=== PATIENT | female | born 1955 | race Caucasian/White ===

== ENCOUNTER → 2017-08-23 | Outpatient (CLI) | payer OTHER ==
--- NOTE | 2017-08-23 10:54 | XR ---
EXAMINATION TYPE: XR chest 2V DATE OF EXAM: 08/23/2017 COMPARISON: NONE HISTORY: Mid chest chest pain with pain under the left breast. TECHNIQUE: Frontal and lateral views of the chest are obtained. FINDINGS: There is no focal air space opacity, pleural effusion, or pneumothorax seen. The cardiac silhouette size is within normal limits. The osseous structures are intact. IMPRESSION: 1. No acute cardiopulmonary process. 2. If there is left breast pain diagnostic workup of the left breast would be recommended with mammog dyan and/or ultrasound.
--- NOTE | 2017-08-28 10:26 | MM ---
Reason for exam: clinical finding. Last mammogram was performed 3 years and 9 months ago. History: Patient is postmenopausal. Family history of premenopausal breast cancer in 2 maternal cousins. Physical Findings: Nurse did not find any significant physical abnormalities on exam. MG Diagnostic Mammo w CAD DERRICK Bilateral CC and MLO view(s) were taken. Prior study comparison: May 24, 2015, mammogram, performed at [facility]. November 16, 2013, bilateral digital screening mammo w/CAD. The breast tissue is heterogeneously dense. This may lower the sensitivity of mammography. There is no discrete abnormality. These results were verbally communicated with the patient on 08/28/17. ASSESSMENT: Negative, BI-RAD 1 RECOMMENDATION: Routine screening mammogram of both breasts in 1 year. Manage on a clinical basis with regard to left pain.
== END | disposition home or self-care (01) ==
LOC: RADMAMWWP 08:58
PROVIDERS: ATTEND Internal Medicine Geriatric Medicine
DX: N64.4 Mastodynia (principal); R07.9 Chest pain, unspecified
CPT/HCPCS: 71020; G0204

== ENCOUNTER → 2017-08-28 | Outpatient (CLI) | payer OTHER ==
--- NOTE | 2017-08-28 11:29 | P.STRESS ---
- Stress Test Note Stress Test Results/Findings: Exam Performed: stress echo exercise Exam Date: 08/28/17 Reason for Exam: CHEST PAIN Height: 5 ft 3 in Weight: 63.503 kg Protocol: JESSICA Stage: 3 Duration of Exercise: 7:15 Resting Heart Rate: 78 Resting Blood Pressure: 103/61 Maximum Achieved Heart Rate: 144 Maximum Achieved Blood Pressure: 159/69 85% PMHR: 133 100% PMHR: 157 METS: 8.5 Technologist Comment: Stress Test Results/Findings: Baseline EKG showed sinus rhythm with normal MO interval and QRS duration. EKGs taken during and after exercise did not reveal any changes to sized ischemia. Occasional PVCs were noted. Echo data: Baseline echo images show normal wall motion and thickening. Exercise echo images showed augmentation of wall motion and thickening in all the segments. Apical 2 chamber, sore suboptimal but overall there appears to be augmentation of wall motion and thickening. Final impression: #1. Negative stress test. #. Negative stress echo
--- NOTE | 2017-08-28 15:54 | ECHOS ---
Stress Test Results/Findings: Exam Performed: stress echo exercise Exam Date: 08/28/17 Reason for Exam: CHEST PAIN Height: 5 ft 3 in Weight: 63.503 kg Protocol: JESSICA Stage: 3 Duration of Exercise: 7:15 Resting Heart Rate: 78 Resting Blood Pressure: 103/61 Maximum Achieved Heart Rate: 144 Maximum Achieved Blood Pressure: 159/69 85% PMHR: 133 100% PMHR: 157 METS: 8.5 Technologist Comment: Stress Test Results/Findings: Baseline EKG showed sinus rhythm with normal GA interval and QRS duration. EKGs taken during and after exercise did not reveal any changes to sized ischemia. Occasional PVCs were noted. Echo data: Baseline echo images show normal wall motion and thickening. Exercise echo images showed augmentation of wall motion and thickening in all the segments. Apical 2 chamber, sore suboptimal but overall there appears to be augmentation of wall motion and thickening. Final impression: #1. Negative stress test. #. Negative stress echo MTDD
== END | disposition home or self-care (01) ==
LOC: RADNMMAIN 10:32
PROVIDERS: ATTEND Internal Medicine Geriatric Medicine
DX: R07.9 Chest pain, unspecified (principal)
CPT/HCPCS: 93017; 93350

== ENCOUNTER → 2021-12-27 | Outpatient (CLI) | payer MEDICARE ==
--- NOTE | 2021-12-27 14:55 | BD ---
EXAMINATION TYPE: Axial Bone Density DATE OF EXAM: 12/27/2021 COMPARISON: 09.11.2017 DEXA bone scan. CLINICAL HISTORY: 66 years year old Female. ICD-10 CODE: Z13.820 SCREEN FOR OSTEOPOROSIS Height: 62.5 Weight: 131 FRAX RISK QUESTIONS: Family History (Parent hip fracture): NO FX Secondary Osteoporosis: YES 3. Menopause before 45: YES RISK FACTORS HISTORY OF: Family History of Osteoporosis: YES, MOTHER WITHOUT FX Postmenopausal woman: YES, TOTAL HYST AT AGE 34 YRS OLD Take estrogen and/or progesterone medications: IN THE PAST ONLY FOR ABOUT 5 YRS, NONE NOW Hyperparathyroidism: NO Adrenal Insufficiency: NO MEDICATIONS: Osteoporosis Medications: YES, FOSAMAX WEEKLY, FOR ABOUT 4-5 YRS Additional Medications: STATIN FOR CHOLESTEROL, VIT D AND CALCIUM.... Additional History: OSTEOPENIA, CHOLESTEROL, EARLY HYST AND MENOPAUSE, EXAM MEASUREMENTS: Bone mineral densitometry was performed using the [employer] System. Bone mineral density as measured about the Lumbar spine is: ----- L1-L4(G/cm2): 1.009 T Score Values are as follows: ----- L1: -1.6 ----- L2: -1.6 ----- L3: -0.9 ----- L4: -1.6 ----- L1-L4: -1.4 Bone mineral density has: Increased 6.5% since study of: 09.11.2017 Bone mineral density about the R hip (g/cm2): 0.848 Bone mineral density about the L hip (g/cm2): 0.796 T Score values are as follows: -----R Neck: -1.5 -----L Neck: -1.7 -----R Total: -1.3 -----L Total: -1.7 Bone mineral density has: Increased 6.8% since study of: 09.11.2017 FRAX%s: The graph provided illustrates a 10.1% chance for a major osteoporotic fx and a 1.5% chance f or the hips probability for fx in 10 years time. IMPRESSION: Osteopenia (T Score between -2.5 and -1). There is slightly increased risk of fracture and the patient may be considered for treatment. Re-Screen 2-5 years. NOTE: T-SCORE=SD OF THE YOUNG ADULT MEAN.
--- NOTE | 2021-12-29 08:50 | MM ---
Reason for exam: screening (asymptomatic). Last mammogram was performed 4 years and 4 months ago. History: Patient is postmenopausal. Family history of premenopausal breast cancer in 2 maternal cousins. Physical Findings: A clinical breast exam by your physician is recommended on an annual basis and results should be correlated with mammographic findings. MG 3D Screening Mammo W/Cad Bilateral CC and MLO view(s) were taken. Prior study comparison: August 23, 2017, bilateral MG diagnostic mammo w CAD DERRICK. May 24, 2015, mammogram, performed at [facility]. The breast tissue is heterogeneously dense. This may lower the sensitivity of mammography. No significant changes when compared with prior studies. ASSESSMENT: Benign, BI-RAD 2 RECOMMENDATION: Routine screening mammogram of both breasts in 1 year.
== END | disposition home or self-care (01) ==
LOC: RADMAMWWP 10:05
PROVIDERS: ATTEND Internal Medicine Geriatric Medicine
DX: Z12.31 Encounter for screening mammogram for malignant neoplasm of breast (principal); Z13.820 Encounter for screening for osteoporosis; M85.80 Other specified disorders of bone density and structure, unspecified site
CPT/HCPCS: 77063; 77067; 77080

== ENCOUNTER → 2023-01-10 | Outpatient (CLI) | payer MEDICARE ==
--- NOTE | 2023-01-11 08:25 | MM ---
Reason for Exam: Screening (asymptomatic). Last mammogram was performed 1 year(s) and 1 month(s) ago. Patient History: Menarche at age 12. First Full-Term at age 21. Left ovary removed at age 31. Right ovary removed at age 31. Hysterectomy at age 31. Postmenopausal. Maternal cousin had breast cancer. Maternal cousin had breast cancer. Risk Values: Rohini 5 year model risk: 1.5%. NCI Lifetime model risk: 5.0%. Prior Study Comparison: 05/24/2015 Screening Mammogram, [facility]. 08/23/2017 Bilateral Diagnostic Mammogram, [facility]. 12/27/2021 Bilateral Screening Mammogram, [facility]. Tissue Density: There are scattered fibroglandular densities. Findings: Analyzed By CAD. There is no suspicious group of microcalcifications or new suspicious mass in either breast. Overall Assessment: Negative, BI-RAD 1 Management: Screening Mammogram of both breasts in 1 year. A clinical breast exam by your physician is recommended on an annual basis and results should be correlated with mammographic findings. Electronically signed and approved by: Maurilio Castro D.O.
== END | disposition home or self-care (01) ==
LOC: RADMAMWWP 09:27
PROVIDERS: ATTEND Internal Medicine Geriatric Medicine
DX: Z12.31 Encounter for screening mammogram for malignant neoplasm of breast (principal)
CPT/HCPCS: 77063; 77067

== ENCOUNTER → 2023-10-07 | Outpatient (CLI) | payer MEDICARE ==
--- NOTE | 2023-10-07 12:19 | XR ---
EXAMINATION TYPE: XR clavicle RT DATE OF EXAM: 10/07/2023 COMPARISON: None HISTORY: Lump on right clavicle TECHNIQUE: 2 view left clavicle FINDINGS: No acute fracture or dislocation is evident. Acromioclavicular junction and sternoclavicula r junction as visualized appear unremarkable. Follow up exams can be performed 7-10 days from acute t rauma for continued pain. IMPRESSION: 1. No acute osseous abnormality right clavicle
--- NOTE | 2023-10-07 12:21 | XR ---
EXAMINATION TYPE: XR chest 2V DATE OF EXAM: 10/07/2023 COMPARISON: 08/23/2017 INDICATION: Lump on right clavicle TECHNIQUE: Frontal and lateral views of the chest are obtained. FINDINGS: The heart size is normal. The pulmonary vasculature is normal. The lungs are clear. No acute osseous abnormality is evident. No right clavicular abnormality is mitchell ntified. IMPRESSION: 1. No acute pulmonary process.
[2023-10-07 15:27] LABS: Basophils # (A) 0.08 X 10*3/uL (0.00-0.10); Basophils % (A) 1.1 %; Eosinophils # (A) 0.21 X 10*3/uL (0.04-0.35); Eosinophils % (A) 2.8 %; HGB 13.9 g/dL (12.0-15.0); Lymphocytes # (A) 2.56 X 10*3/uL (0.90-5.00); Lymphocytes % (A) 33.9 %; MCH 30.3 pg (27.0-32.0); MCHC 32.3 g/dL (32.0-37.0); MCV 93.9 FL (80.0-97.0); Mean Platelet Volume 9.2 FL (9.5-12.2); Monocytes # (A) 0.64 X 10*3/uL (0.20-1.00); Monocytes % (A) 8.5 %; NRBC Per 100 WBC 0 X 10*3/uL (0.00-0.01); Neutrophils # (A) 4.04 X 10*3/uL (1.80-7.70); Neutrophils % (A) 53.4 %; Platelet Count 274 X 10*3/uL (140-440); RBC 4.58 X 10*6/uL (4.10-5.20); RDW 12.7 % (11.5-14.5); WBC 7.55 X 10*3/uL (4.50-10.00)
[2023-10-07 15:52] LABS: Chol/HDL Ratio 3.35 Ratio; Creatine Kinase 142 U/L (26-186); LDL Cholesterol,Calculated 93.8 mg/dL (0.0-131.0)
[2023-10-07 15:53] LABS: T4, Free (Free Thyroxine) 1.16 ng/dL (0.80-1.80)
[2023-10-07 15:59] LABS: BUN/Creat Ratio 10.89 Ratio (12.00-20.00); Blood Urea Nitrogen 9.8 mg/dL (9.0-27.0); Carbon Dioxide 20.9 mmol/L (21.6-31.8); Chloride 102 mmol/L (96-109); Glucose 93 mg/dL (70-110); Potassium 4.4 mmol/L (3.5-5.5); Sodium 139 mmol/L (135-145)
[2023-10-07 16:00] LABS: ALT 51 U/L (8-44); AST 42 U/L (13-35); Albumin 4.8 g/dL (3.8-4.9); Albumin/Globulin Ratio 1.92 Ratio (1.60-3.17); Alkaline Phosphatase 54 U/L (41-126); Calcium 9.6 mg/dL (8.7-10.3); Globulin 2.5 g/dL (1.6-3.3); Total Bilirubin 0.9 mg/dL (0.3-1.2); Total Protein 7.3 g/dL (6.2-8.2)
== END | disposition home or self-care (01) ==
LOC: LABWHC1 11:21
PROVIDERS: ATTEND Internal Medicine Geriatric Medicine
DX: Z00.00 Encounter for general adult medical examination without abnormal findings (principal); E78.5 Hyperlipidemia, unspecified; E07.9 Disorder of thyroid, unspecified; M81.0 Age-related osteoporosis without current pathological fracture; R73.9 Hyperglycemia, unspecified; S42.024S Nondisplaced fracture of shaft of right clavicle, sequela; Y99.9 Unspecified external cause status
CPT/HCPCS: 36415; 71046; 80053; 80061; 82306; 82550; 83036; 84439; 84443; 85025

== ENCOUNTER → 2024-01-13 | Outpatient (CLI) | payer MEDICARE ==
--- NOTE | 2024-01-14 19:32 | MM ---
Reason for Exam: Screening (asymptomatic). Last screening mammogram was performed 12 month(s) ago. Patient History: Menarche at age 12. First Full-Term at age 21. Left ovary removed at age 31. Right ovary removed at age 31. Hysterectomy at age 31. Postmenopausal. Maternal cousin had breast cancer. Maternal cousin had breast cancer. Risk Values: Rohini 5 year model risk: 1.5%. NCI Lifetime model risk: 4.8%. Prior Study Comparison: 08/23/2017 Bilateral Diagnostic Mammogram, [facility]. 12/27/2021 Bilateral Screening Mammogram, [facility]. 01/10/2023 Bilateral MG 3D screening mammo w/cad, [facility]. Tissue Density: There are scattered areas of fibroglandular density. Findings: Analyzed By CAD. There is no suspicious group of microcalcifications or new suspicious mass in either breast. Overall Assessment: Negative, BI-RAD 1 Management: Screening Mammogram of both breasts in 1 year. . Patient should continue monthly self-breast exams. A clinical breast exam by your physician is recommended on an annual basis. This exam should not preclude additional follow-up of suspicious palpable abnormalities. Note on Rohini scores and lifetime risk: 1. A Rohini score greater than 3% is considered moderate risk. If this is the case, consider specialist referral to assess eligibility for a risk reducing agent. 2. If overall lifetime risk for the development of breast cancer is 20% or higher, the patient may qualify for future screening with alternating mammogram and breast MRI. Electronically signed and approved by: Lorena Amaya M.D. Radiologist
--- NOTE | 2024-01-16 07:21 | BD ---
EXAMINATION TYPE: Axial Bone Density DATE OF EXAM: 01/13/2024 CLINICAL HISTORY: 68 years old Female. ICD-10 CODE: M81.0 AGE-RELATED OSTEOPOROSIS Height: 62.5 Weight: 148 FRAX RISK QUESTIONS: Family History (Parent hip fracture): no fx, Secondary Osteoporosis: yes 3. Menopause before 45: yes, total hx at 34 yrs RISK FACTORS HISTORY OF: MEDICATIONS: cholesterol meds, vit d and calcium, Osteoporosis Medications: yes, fosamax for about 8 yrs EXAM MEASUREMENTS: Bone mineral densitometry was performed using the [employer] System. Bone mineral density as measured about the Lumbar spine is: ----- L1-L4(G/cm2): 0.995 T Score Values are as follows: ----- L1: -2.2 ----- L2: -1.8 ----- L3: -1.3 ----- L4: -1.0 ----- L1-L4: -1.5 Z Score Values are as follows: ----- L1: -0.7 ----- L2: -0.2 ----- L3: 0.3 ----- L4: 0.5 ----- L1-L4: 0.1 Bone mineral density has: Decreased -1.4% since study of: 12.27.2021 Bone mineral density about the R hip (g/cm2): 0.816 Bone mineral density about the L hip (g/cm2): 0.770 T Score values are as follows: -----R Neck: -1.6 -----L Neck: -1.7 -----R Total: -1.5 -----L Total: -1.9 Z Score values are as follows: -----R Neck: 0.0 -----L Neck: -0.1 -----R Total: -0.1 -----L Total: -0.5 Bone mineral density has: Decreased -3.5% since study of: 12.27.2021 FRAX%s: The graph provided illustrates a 10.5% chance for a major osteoporotic fx and a 1.7% chance f or the hips probability for fx in 10 years time. IMPRESSION: Osteopenia (T Score between -2.5 and -1). There is slightly increased risk of fracture and the patient may be considered for treatment. Re-Screen 2-5 years. NOTE: T-SCORE=SD OF THE YOUNG ADULT MEAN.
== END | disposition home or self-care (01) ==
LOC: RADMAMWWP 10:51
PROVIDERS: ATTEND Internal Medicine Geriatric Medicine
DX: Z12.31 Encounter for screening mammogram for malignant neoplasm of breast (principal); M81.0 Age-related osteoporosis without current pathological fracture; Z78.0 Asymptomatic menopausal state; Z80.3 Family history of malignant neoplasm of breast
CPT/HCPCS: 77063; 77067; 77080

== ENCOUNTER → 2025-04-29 | Outpatient (CLI) | payer MEDICARE ==
--- NOTE | 2025-04-30 10:35 | MM ---
Reason for Exam: Screening (asymptomatic). Last mammogram was performed 1 year(s) and 3 month(s) ago. Patient History: Menarche at age 12. First Full-Term at age 21. Left ovary removed at age 31. Right ovary removed at age 31. Hysterectomy at age 31. Postmenopausal. Maternal cousin had breast cancer. Maternal cousin had breast cancer. Risk Values: Rohini 5 year model risk: 1.6%. NCI Lifetime model risk: 4.3%. Prior Study Comparison: 12/27/2021 Bilateral Screening Mammogram, [facility]. 01/10/2023 Bilateral MG 3D screening mammo w/cad, [facility]. 01/13/2024 Bilateral MG 3D screening mammo w/cad, [facility]. Tissue Density: There are scattered areas of fibroglandular density. Findings: Analyzed By CAD. There is no suspicious group of microcalcifications or new suspicious mass in either breast. Overall Assessment: Negative, BI-RAD 1 Management: Screening Mammogram of both breasts in 1 year. Patient should continue monthly self-breast exams. A clinical breast exam by your physician is recommended on an annual basis. This exam should not preclude additional follow-up of suspicious palpable abnormalities. Note on Rohini scores and lifetime risk: 1. A Rohini score greater than 3% is considered moderate risk. If this is the case, consider specialist referral to assess eligibility for a risk reducing agent. 2. If overall lifetime risk for the development of breast cancer is 20% or higher, the patient may qualify for future screening with alternating mammogram and breast MRI. [facility], , 04/30/2025 10:16 AM. Electronically signed and approved by: Lorena Amaya M.D. Radiologist
== END | disposition home or self-care (01) ==
LOC: RADMAMWWP 10:00
PROVIDERS: ATTEND Internal Medicine Geriatric Medicine
DX: Z12.31 Encounter for screening mammogram for malignant neoplasm of breast (principal); R92.323 Mammographic fibroglandular density, bilateral breasts; Z78.0 Asymptomatic menopausal state; Z80.3 Family history of malignant neoplasm of breast
CPT/HCPCS: 77063; 77067